=== PATIENT | male | born 1995 | race Caucasian/White ===

== ENCOUNTER → 2018-09-19 17:51 | Outpatient (CLI) | payer BC, SELFPAY ==
--- NOTE | 2018-09-19 18:01 | DI.RAD.S_ITS ---
PROCEDURE: XR CHEST 2V INDICATIONS: cough 3 wks TECHNIQUE: 2 views of the chest were acquired. COMPARISON: None. FINDINGS: Surgical changes and devices: None. Lungs and pleura: No pleural effusions or pneumothorax. Lungs are clear. Mediastinum: Mediastinal contours are normal. Heart size is normal. Bones and chest wall: No suspicious bony abnormalities. Soft tissues appear unremarkable. IMPRESSION: No acute cardiopulmonary findings. Dictated by: Carina Christie M.D. on 09/19/2018 at 18:30 Approved by: Carina Christie M.D. on 09/19/2018 at 18:31
== END ==
PROVIDERS: Visit Provider Physician Assistant
DX: R05 Cough (principal)
CPT/HCPCS: 71046

== ENCOUNTER → 2020-12-01 12:04 | Outpatient (CLI) | payer OTHER, SELFPAY ==
[2020-12-01] MEDS: COVID-19 VACC #1, MRNA(MOD) 100 MCG/0.5 ML VIAL IM (12:12)
== END ==
PROVIDERS: Visit Provider Internal Medicine
DX: Z23 Encounter for immunization (principal)
CPT/HCPCS: 0011A; 91301

== ENCOUNTER → 2020-12-29 12:02 | Outpatient (CLI) | payer OTHER, SELFPAY ==
[2020-12-29] MEDS: COVID-19 VACC #2, MRNA(MOD) 100 MCG/0.5 ML VIAL IM (12:07)
== END ==
PROVIDERS: Visit Provider Internal Medicine
DX: Z23 Encounter for immunization (principal)
CPT/HCPCS: 0012A; 91301

== ENCOUNTER → 2023-12-13 18:32 | Outpatient (CLI) | payer SELFPAY ==
[2023-12-15 22:30] LABS: Urine N gonorrhoeae NOT DETECTED
[2023-12-15 23:00] LABS: Urine Chlamydia NOT DETECTED
== END ==
PROVIDERS: Visit Provider Nurse Practitioner Family
DX: Z11.3 Encounter for screening for infections with a predominantly sexual mode of transmission (principal)
CPT/HCPCS: 87491; 87591

== ENCOUNTER → 2023-12-14 06:49 | Outpatient (CLI) | payer SELFPAY ==
[2023-12-14 08:30] LABS: Hepatitis B Surface Antigen NEGATIVE s/c (NEGATIVE)
[2023-12-14 08:47] LABS: HIV 1 & 2 Ab/Ag 4th Gen Combo NEGATIVE (NEGATIVE); Hep C Virus Ab w/Reflex Quant NEGATIVE s/c (NEGATIVE)
[2023-12-16 13:42] LABS: HSV1IGG < 0.91 index (0.00-0.90)
[2023-12-18 05:13] LABS: RPR Screen Non Reactive (Non Reactive)
== END ==
LOC: LAB 07:02
PROVIDERS: Referring Provider Nurse Practitioner Family; Visit Provider Nurse Practitioner Family
DX: Z11.3 Encounter for screening for infections with a predominantly sexual mode of transmission (principal)
CPT/HCPCS: 36415; 86592; 86695; 86696; 86803; 87340; 87389